=== PATIENT | female | born 1990 | race Caucasian/White ===

== ENCOUNTER 2023-11-22 20:51 | Emergency (ER) | payer OTHER, SELFPAY ==
--- NOTE | ~2023-11-22 | CT_ITS ---
EXAMINATION: CT abdomen pelvis w con DATE: 11/22/2023 22:08 INDICATION: Left lower quadrant abdominal pain. TECHNIQUE: Computed tomography (CT) of the abdomen and pelvis was performed with 100 mL Omnipaque 350 intravenous contrast. Automated exposure control and iterative reconstruction technique were employe d. The dose-length product was 614.64 mGy-cm. COMPARISON: None. FINDINGS: There is mild atelectasis bilaterally. No pleural effusion. The heart size is normal. No pe ricardial effusion. There is periportal edema in the liver. The gallbladder is normal. There is a sma ll spleen in left upper quadrant. The pancreas, adrenal glands, and kidneys are normal. There is a 3. 1 cm mass in left ovary. There are no dilated loops of bowel. The appendix is not well visualized. Th ere are no pathologically enlarged lymph nodes. There is physiologic fluid in the pelvis. There is mi ld thoracic and lumbar spondylosis. There is mild chronic anterior wedging of multiple thoracic verte bral bodies. IMPRESSION: 1. 3.1 cm mass in left ovary, likely a hemorrhagic cyst. Consider pelvis ultrasound. Reviewed, dictated and finalized at location E. [employer] IMPRESSION: 1. 3.1 cm mass in left ovary, likely a hemorrhagic cyst. Consider pelvis ultras ound.
[2023-11-22 20:57] VITALS: BP 129/90; PULSE 93; RESP 20; TEMP 36.3; O2SAT 100
--- NOTE | 2023-11-22 21:00 | ED_ITS ---
HPI - General Adult General Chief complaint: Abdominal Pain Stated complaint: bdominal pain Time Seen by Provider: 11/22/23 20:55 History of Present Illness HPI narrative: 33yo woman presents with sudden onset severe suprapubic and left lower quadrant abdominal pain this evening. No fevers, chills, diarrhea, bloody stools. Related Data Allergies Allergy/AdvReac Type Severity Reaction Status Date / Time No Known Allergies Allergy Verified 11/22/23 20:55 Review of Systems Review of Systems: All systems reviewed & are unremarkable except as noted in HPI and below Constitutional: Constitutional: Denies chills and Denies fever(s) Cardiovascular: Cardiovascular: Denies chest pain Respiratory: Respiratory: Denies dyspnea Gastrointestinal: Gastrointestinal: Reports abdominal pain and Denies diarrhea Exam Const: General: healthy appearing and alert Nutritional Appearance: well nourished HENMT: Head: normal to inspection Eyes: Conjunctivae: conjunctivae normal Resp: Effort & Inspection: normal respiratory effort Cardio: Rate: regular rate GI: Inspection: non-distended GI Palp: Yes Soft to palpation and Yes Tenderness to palpation present (GI) Other: suprapubic tenderness Skin: General skin exam: normal color, no jaundice and no pallor Extrem: General: no clubbing, cyanosis or edema Medical Decision Making MDM Narrative Medical decision making narrative: acute suprapubic and left sided abdominal pain DDx renal colic, cystitis, p yelonephritis, ovarian cyst, ectopic , ovarian torsion, constipation Pain much improved. CT notable only for a hemorrhagic ovarian cyst. No other pathology. Findings not consistent with a torsed ovary. Discharge Plan Discharge Clinical Impression: Acute abdominal pain in left lower quadrant, Ruptured cyst of left ovary Patient Disposition: Home, Self-Care Condition: Improved Additional Instructions: Your CT shows a ruptured ovarian cyst, which can be painful but is benign. No torsion, inflammation, infection, or serious illness is seen. Take the prescribed medications as needed to help with any pain or nausea. Prescriptions: New ketorolac 10 mg tablet 10 mg PO Q6H PRN (Reason: moderate to severe acute pain) 5 Days Qty: 15 0RF promethazine 25 mg tablet 25 mg PO Q6H PRN (Reason: nausea, abdominal pain) Qty: 20 0RF Follow-up/Referrals: UNKNOWN,DOCTOR [Primary Care Provider] - Time of Disposition: 22:32
[2023-11-22] MEDS: KETOROLAC 30 MG/ML VIAL (*BKC) IV PUSH (21:10)
[2023-11-22] MEDS: diphenhydrAMINE HCl INJ 50 MG/ML VIAL IV PUSH (21:10)
[2023-11-22] MEDS: METOCLOPRAMIDE HCL INJ 10 MG/2 ML VIAL IV PUSH (21:13)
[2023-11-22] MEDS: SODIUM CHLORIDE 0.9% IV 1,000 ML 999 ML IV CONT (21:13)
[2023-11-22 21:16] LABS: Basophils Absolute Auto 0.08 K/mm3 (0.00-0.10); Basophils Percent Auto 0.5 % (0.0-1.0); Eosinophils Absolute Auto 0.47 K/mm3 (0.02-0.50); Hematocrit 35.7 % (35.0-49.0); Hemoglobin 11.4 g/dL (12.0-15.0); Immature Granulocyte Absolute 0.06 K/mm3 (0.00-0.00); Immature Granulocyte Percent A 0.4 % (0.0-0.0); Lymphocytes Absolute Auto 3.69 K/mm3 (1.10-4.50); Lymphocytes Percent Auto 23.9 % (18.0-42.0); Mean Corpuscular HGB Conc 31.9 g/dL (32.0-36.0); Mean Corpuscular Hemoglobin 28.4 pg (27.0-31.0); Mean Platelet Volume 9.6 fl (9.2-11.8); Monocytes Absolute Auto 0.76 K/mm3 (0.10-0.90); Monocytes Percent Auto 4.9 % (2.0-11.0); Neutrophils Absolute Auto 10.4 K/mm3 (1.7-7.2); Neutrophils Percent Auto 67.3 % (50.0-70.0); Platelet Count Result 417 K/mm3 (150-420); Red Blood Count 4.01 M/mm3 (4.20-5.40); Red Cell Distribution Width 13.2 % (11.6-14.4); White Blood Count 15.4 K/mm3 (4.8-10.8)
[2023-11-22 21:18] VITALS: BP 128/87; PULSE 82; RESP 20; O2SAT 100
[2023-11-22 21:32] LABS: Alanine Aminotransferase 19 U/L (14-59); Albumin Level 3.2 g/dL (3.4-5.0); Alkaline Phosphatase 70 U/L (46-116); Anion Gap 12 mmol/L (8-16); Aspartate Amino Transferase 14 U/L (15-37); Bilirubin,Total 0.2 mg/dL (0.00-1.00); Blood Urea Nitrogen 13 mg/dL (7-18); Calcium 8.5 mg/dL (8.5-10.1); Carbon Dioxide 25 mmol/L (21-32); Chloride 100 mmol/L (98-108); Estimated CRCL calculation 86 ml/min; Estimated Glomerular Filt Rate > 60; Glucose 126 mg/dL (70-99); Osmolality Calculated 286 mOsm/kg (285-295); Potassium 3.6 mmol/L (3.5-5.1); Sodium 137 mmol/L (136-145); Total Protein 7.4 g/dL (6.4-8.2)
[2023-11-22 21:33] LABS: Lipase 47 U/L (16-77)
[2023-11-22 21:46] LABS: SPREG INTERNAL CONTROL Positive; Serum Qual hCG Negative
[2023-11-22 22:48] VITALS: BP 118/93; PULSE 100; RESP 16; TEMP 36.3; O2SAT 100
== END 2023-11-22 22:49 | disposition home or self-care (01) ==
PROVIDERS: Emergency Provider Emergency Medicine
DX: N83.202 Unspecified ovarian cyst, left side (principal)
CPT/HCPCS: 36415; 74177; 80053; 83605; 83690; 84703; 85025; 96361; 96374; 96375; 99284; J1200; J1885; J2765; J7030; Q9967